=== PATIENT | female | born 1970 | race Hispanic/Latino ===

== ENCOUNTER 2020-10-05 07:49 | Outpatient (CLI) | payer OTHER ==
--- NOTE | 2020-10-05 10:10 | ULT ---
Ultrasound of thepelvis: 10/05/2020 COMPARISON:None available HISTORY:Abnormal uterine bleeding TECHNIQUE: Multiplanar grayscale sonographic imaging of thepelvis with transabdominal and endovaginal imaging. Ovaries are assessed with Doppler interrogation including color flow and spectral analysis. FINDINGS:3 circumscribed cysts in the region of the cervix measure up to 2 cm suggesting multiple nab othian cysts. Uterus measures 10.4 x 6.8 x 5.3 cm. No significant free fluid is seen in the pelvis. Blood flow is documented within both ovaries. The left ovary measures 2.2 x 1.8 x 1.5 cm and the right ovary measures 2.9 x 2.0 x 1.8 cm. 1 cm left ovarian follicle noted. No ovarian or adnexal mass. Endometrial thickness is 9 mm, within n ormal limits. IMPRESSION:No acute findings.
== END 2020-10-05 07:50 | disposition home or self-care (01) ==
LOC: MADULT 07:49
PROVIDERS: ATTEND Family Medicine
DX: N93.9 Abnormal uterine and vaginal bleeding, unspecified (principal)
CPT/HCPCS: 76856